=== PATIENT | male | born 1990 | race Caucasian/White ===

== ENCOUNTER 2017-03-29 16:56 | Emergency (ER) | payer OTHER, SELFPAY ==
[2017-03-29 19:52] VITALS: BP 135/92; PULSE 74; RESP 20; TEMP 37; O2SAT 96; BMI 22.3
--- NOTE | 2017-03-29 19:54 | XR_ITS ---
XR foot RT min 3V COMPARISON: Right foot 12/16/2010 HISTORY: Puncture wound after stepping on a nail TECHNIQUE: AP lateral and oblique views FINDINGS: The tarsal bones metatarsals and phalanges appear intact with no evidence of recent or old fracture. The soft tissues are normal. The plantar arch is normal. There are no definite foreign bodies and there is no air within the soft tissues. IMPRESSION: Negative right foot
--- NOTE | 2017-03-29 19:57 | HMH.EDUTC ---
[facility] [place] Clinical Impression: Cellulitis of right foot Puncture wound of foot, right Qualifiers: Encounter type: initial encounter Qualified Code(s): S91.331A - Puncture wound without foreign body, right foot, initial encounter Disposition: Home, Self-Care Condition on Discharge: Good Instructions: DI for Puncture Wound, DI for Cellulitis -- Child Additional Instructions: * Start antibiotic(s) tomorrow since you had injection tonight and no pharmacy is open and be sure to take as ordered for the FULL length of time although you should start to see improvement over the next 24-48 hours. * Elevate * Monitor closely. Outlined redness so that you can monitor easier. FU immediately for new or worsening symptoms ( including but not limited to redness, swelling, red streaking, fever, chills). * wash with warm soap and water, keep open to air if at home with foot elevated * You had a tetanus vaccine while in clinic * tylenol and motrin as needed. Do NOT take anyones narcotics as this can get both you and them in trouble. You can also overdose on medications that way and/or take something that is not appropriate for you. * You need a 24 hour wound check since tomorrow is friday. If you can not get into your primary care then return here. Prescriptions: cephALEXin [Keflex 500mg Cap] 500 mg PO Q6H #40 cap Referrals: Kar Trotter [Primary Care Provider] - (Follow up in 24 hours. If you can't see him, return here.) Forms: Work/School Release Time of Disposition: 21:09 Medical Decision Making Vital Signs: 03/29/17 19:52 03/29/17 21:11 Temperature 98.6 F 97 F L Temperature Source Temporal Artery Scan Pulse Rate 67 Pulse Rate [Right Radial] 74 Respiratory Rate 20 18 Blood Pressure 127/78 Blood Pressure [Right Arm] 135/92 Blood Pressure Mean [Right Arm] 106 Blood Pressure Source [Right Arm] Automatic Cuff Blood Pressure Position [Right Arm] Sitting 02 Sat by Pulse Oximetry 96 Oxygen Delivery Method Room Air Orders (Tests/Meds): ED MEDICATIONS Discontinued Medications Generic Name Dose Route Start Last Admin Trade Name Freq PRN Reason Stop Dose Admin Ceftriaxone Sodium 1 gm 03/29/17 21:03 Rocephin 1gm Vial IM 03/29/17 21:04 ONCE ONE Ketorolac Tromethamine 60 mg 03/29/17 21:03 Toradol 60mg/2ml Vial IM 03/29/17 21:04 ONCE ONE Lidocaine HCl 0 ml 03/29/17 21:03 Lidocaine 1% 10ml Mdv IM 03/29/17 21:04 ONCE ONE Tetanus/Reduced Diphtheria/Acell Pertussis 0.5 ml 03/29/17 20:20 03/29/17 20:23 Adacel Tdap 0.5ml Syringe IM 03/29/17 20:21 0.5 ml .ONCE ONE Administration - Radiology Data #1 Image(s): Foot/Toes Image Reviewed: Yes I reviewed the patient's radiology image w/the ED provider Rvwd with Dr. Ramirez ER , no acute findings - Physician Consults Physician Consulted: Dr. Ramirez ER Time: 20:45 Reason -: Pt condition Comment/Response: Discussed HPI, exam, xray. Discharge with antibiotics and follow up. - Stevie Inquiry Pt receiving controlled substance: No [facility] [place] - General Stated complaint: AO [id number] STEPPED ON NAIL R FOOT Time Seen by Provider: 03/29/17 19:57 Mode of Arrival: Family Vehicle Source of Information: Patient Limitations: No Limitations Description of Symptoms (Recalled from Triage Doc. by RN): PT STATES THAT HE STEPPED ON A SHADE NAIL YESTERDAY. PT RIGHT FOOT IS SWOLLEN AND TENDER. PT SAYS ITS HARD TO MOVE HIS 2ND - 5TH TOES. HEENT Symptoms (Recalled from RN notes): No Resp Symptoms (Recalled from RN notes): No Skin Symptoms (Recalled from RN notes): Yes (RIGHT FOOT NAIL PUNCTURE) MS Symptoms (Recalled from RN notes): No Functional Status (Recalled from RN notes): NA - History of Present Illness Provider Complaint: c/o puncture wound to bottom of right foot. Was working on tearing out guts of a house. Stepped on rusted nail in a board yesterday. Went through sneaker and then on into foot. no immedia
--- NOTE | 2017-03-29 20:06 | ED_ITS ---
[facility] [place]ression: Cellulitis of right foot Puncture wound of foot, right Qualifiers: Encounter type: initial encounter Qualified Code(s): S91.331A - Puncture wound without foreign body, right foot, initial encounter Disposition: Home, Self-Care Condition on Discharge: Good Instructions: DI for Puncture Wound, DI for Cellulitis -- Child Additional Instructions: * Start antibiotic(s) tomorrow since you had injection tonight and no pharmacy is open and be sure to take as ordered for the FULL length of time although you should start to see improvement over the next 24-48 hours. * Elevate * Monitor closely. Outlined redness so that you can monitor easier. FU immediately for new or worsening symptoms ( including but not limited to redness , swelling, red streaking, fever, chills). * wash with warm soap and water, keep open to air if at home with foot elevated * You had a tetanus vaccine while in clinic * tylenol and motrin as needed. Do NOT take anyones narcotics as this can get both you and them in trouble. You can also overdose on medications that way and/ or take something that is not appropriate for you. * You need a 24 hour wound check since tomorrow is friday. If you can not get into your primary care then return here. Prescriptions: cephALEXin [Keflex 500mg Cap] 500 mg PO Q6H #40 cap Referrals: Kar Trotter [Primary Care Provider] - (Follow up in 24 hours. If you can't see him, return here.) Forms: Work/School Release Time of Disposition: 21:09 Medical Decision Making Vital Signs: 03/29/17 19:52 03/29/17 21:11 Temperature 98.6 F 97 F L Temperature Source Temporal Artery Scan Pulse Rate 67 Pulse Rate [Right Radial] 74 Respiratory Rate 20 18 Blood Pressure 127/78 Blood Pressure [Right Arm] 135/92 Blood Pressure Mean [Right Arm] 106 Blood Pressure Source [Right Arm] Automatic Cuff Blood Pressure Position [Right Arm] Sitting 02 Sat by Pulse Oximetry 96 Oxygen Delivery Method Room Air Orders (Tests/Meds): ED MEDICATIONS Discontinued Medications Generic Name Dose Route Start Last Admin Trade Name Freq PRN Reason Stop Dose Admin Ceftriaxone Sodium 1 gm 03/29/17 21:03 Rocephin 1gm Vial IM 03/29/17 21:04 ONCE ONE Ketorolac Tromethamine 60 mg 03/29/17 21:03 Toradol 60mg/2ml Vial IM 03/29/17 21:04 ONCE ONE Lidocaine HCl 0 ml 03/29/17 21:03 Lidocaine 1% 10ml Mdv IM 03/29/17 21:04 ONCE ONE Tetanus/Reduced Diphtheria/Acell Pertussis 0.5 ml 03/29/17 20:20 03/29/17 20: 23 Adacel Tdap 0.5ml Syringe IM 03/29/17 20:21 0.5 ml .ONCE ONE Administration - Radiology Data #1 Image(s): Foot/Toes Image Reviewed: Yes I reviewed the patient's radiology image w/the ED provider Rvwd with Dr. Ramirez, ER MD, no acute findings - Physician Consults Physician Consulted: Dr. Ramirez, ER MD Time: 20:45 Reason -: Pt condition Comment/Response: Discussed HPI, exam, xray. Discharge with antibiotics and follow up. - Stevie Inquiry Pt receiving controlled substance: No [facility] [place] - General Stated complaint: AO [id number] STEPPED ON NAIL R FOOT Time Seen by Provider: 03/29/17 19:57 Mode of Arrival: Family Vehicle Source of Information: Patient Limitations: No Limitations Description of Symptoms (Recall
[2017-03-29 21:11] VITALS: BP 127/78; PULSE 67; RESP 18; TEMP 36.1
== END 2017-03-29 21:12 | disposition home or self-care (01) ==
PROVIDERS: Emergency Provider Nurse Practitioner Family; Family Provider Family Medicine; PCP Family Medicine
DX: S91.331A Puncture wound without foreign body, right foot, initial encounter (principal); L03.115 Cellulitis of right lower limb
CPT/HCPCS: 73630; 90471; 90715; 99201; 99202

== ENCOUNTER 2017-06-01 06:40 | Emergency (ER) | payer OTHER, SELFPAY ==
[2017-06-01 06:46] VITALS: BP 148/99; PULSE 121; RESP 18; TEMP 37.3; O2SAT 98; BMI 21.9
--- NOTE | 2017-06-01 07:13 | HMH.EDGENADL ---
ED Disposition Clinical Impression: Pain due to dental caries, Gingivitis Disposition: Home, Self-Care Condition on Discharge: Good Instructions: DI for Dental Pain Additional Instructions: see dentist for follow up Prescriptions: Minocycline HCl 100 mg PO BID #20 tab Referrals: Kar Trotter [Primary Care Provider] - - Critical Care Critical Care Time: No Attestation: On 06/01/17, the high probability of a clinically significant, sudden or life threatening deterioration of the following system(s) required my full and direct attention, intervention and personal management. The time I documented below is in addition to time spent performing reported procedures but includes the following listed in this critical care notation. Medical Decision Making - Medical Records Medical records reviewed: Yes: I reviewed the patient's medical records. - Stevie Inquiry Pt receiving controlled substance: No Vital Signs: 06/01/17 06:46 Temperature 99.2 F Temperature Source Oral Pulse Rate [Right Brachial] 121 H Respiratory Rate 18 Blood Pressure [Right Arm] 148/99 Blood Pressure Mean [Right Arm] 115 Blood Pressure Source [Right Arm] Automatic Cuff Blood Pressure Position [Right Arm] Sitting 02 Sat by Pulse Oximetry 98 Oxygen Delivery Method Room Air Orders (Tests/Meds): ED MEDICATIONS Discontinued Medications Generic Name Dose Route Start Last Admin Trade Name Freq PRN Reason Stop Dose Admin Ibuprofen 600 mg 06/01/17 06:51 06/01/17 06:57 Motrin 600mg Tablet PO 06/01/17 06:52 600 mg ONCE ONE Administration Lidocaine HCl 15 ml 06/01/17 06:51 06/01/17 06:57 Lidocaine 2% Viscous Solution 15ml Udc PO 06/01/17 06:52 15 ml ONCE ONE Administration General Adult HPI - General Chief complaint: PAIN Stated complaint: Dental Pain Time Seen by Provider: 06/01/17 07:13 Mode of Arrival: Ambulatory Source of Information: Patient, Medical Record Limitations: No Limitations Description of Symptoms (Recalled from ER Triage Doc. by RN): left side dental pain; tooth broke - History of Present Illness HPI narrative: pt with acute dental pain Onset (ago): day(s) Location: mouth Severity: moderate Treatments prior to arrival: NSAID - Related Data Home Medications Medication Instructions Recorded Confirmed cephALEXin [Keflex 500mg Cap] 500 mg PO Q6H 06/01/17 06/01/17 Previous Rx's Medication Instructions Recorded Minocycline HCl 100 mg PO BID #20 tab 06/01/17 Allergies Allergy/AdvReac Type Severity Reaction Status Date / Time No Known Allergies Allergy Verified 03/29/17 17:19 [facility] History I have reviewed the patient's past medical history: Yes Other Medical History: Reports: Arthritis, Other (chronic back and joint pain) Other Surgeries: Yes: Other (dental extractions) - Social History Educational Level: Completed High School Smoking Status: Current every day smoker Tobacco Type: cigarettes Alcohol Intake: never - Psychiatric History Expresses thoughts of harming self/others: None Suicide Plan Description: No Plan ROS Obtained: Yes All systems reviewed & no additional complaints - Constitutional Constitutional: Denies fever(s) - Eyes Eyes: Denies change in vision - ENT Ears, Nose, Mouth, and Throat: Reports dental pain, Denies sore throat - Cardiovascular Cardiovascular: Denies chest pain at rest - Respiratory Respiratory: No cough - Gastrointestinal Gastrointestingal: Denies: abdominal pain - Integumentary/Breasts Skin/Breast: Denies rash - Neurologic Neurologic: Denies seizure-like activity Physical Exam - General General appearance: in no apparent distress - Head Head exam: normocephalic - Eye Eye exam: Present: PERRL, EOMI - Expanded ENT Exam Teeth exam: Present: dental caries, gingival swelling - Neck Neck exam: Present: trachea midline - Respiratory Respiratory exam: Absent: respiratory distress
--- NOTE | 2017-06-01 07:18 | ED_ITS ---
ED Disposition Clinical Impression: Pain due to dental caries, Gingivitis Disposition: Home, Self-Care Condition on Discharge: Good Instructions: DI for Dental Pain Additional Instructions: see dentist for follow up Prescriptions: Minocycline HCl 100 mg PO BID #20 tab Referrals: Kar Trotter [Primary Care Provider] - - Critical Care Critical Care Time: No Attestation: On 06/01/17, the high probability of a clinically significant, sudden or life threatening deterioration of the following system(s) required my full and direct attention, intervention and personal management. The time I documented below is in addition to time spent performing reported procedures but includes the following listed in this critical care notation. Medical Decision Making - Medical Records Medical records reviewed: Yes: I reviewed the patient's medical records. - Stevie Inquiry Pt receiving controlled substance: No Vital Signs: 06/01/17 06:46 Temperature 99.2 F Temperature Source Oral Pulse Rate [Right Brachial] 121 H Respiratory Rate 18 Blood Pressure [Right Arm] 148/99 Blood Pressure Mean [Right Arm] 115 Blood Pressure Source [Right Arm] Automatic Cuff Blood Pressure Position [Right Arm] Sitting 02 Sat by Pulse Oximetry 98 Oxygen Delivery Method Room Air Orders (Tests/Meds): ED MEDICATIONS Discontinued Medications Generic Name Dose Route Start Last Admin Trade Name Freq PRN Reason Stop Dose Admin Ibuprofen 600 mg 06/01/17 06:51 06/01/17 06:57 Motrin 600mg Tablet PO 06/01/17 06:52 600 mg ONCE ONE Administration Lidocaine HCl 15 ml 06/01/17 06:51 06/01/17 06:57 Lidocaine 2% Viscous Solution 15ml Udc PO 06/01/17 06:52 15 ml ONCE ONE Administration General Adult HPI - General Chief complaint: PAIN Stated complaint: Dental Pain Time Seen by Provider: 06/01/17 07:13 Mode of Arrival: Ambulatory Source of Information: Patient, Medical Record Limitations: No Limitations Description of Symptoms (Recalled from ER Triage Doc. by RN): left side dental pain; tooth broke - History of Present Illness HPI narrative: pt with acute dental pain Onset (ago): day(s) Location: mouth Severity: moderate Treatments prior to arrival: NSAID - Related Data Home Medications Medication Instructions Recorded Confirmed cephALEXin [Keflex 500mg Cap] 500 mg PO Q6H 06/01/17 06/01/17 Previous Rx's Medication Instructions Recorded Minocycline HCl 100 mg PO BID #20 tab 06/01/17 Allergies Allergy/AdvReac Type Severity Reaction Status Date / Time No Known Allergies Allergy Verified 03/29/17 17:19 [facility] History I have reviewed the patient's past medical history: Yes Other Medical History: Reports: Arthritis, Other (chronic back and joint pain) Other Surgeries: Yes: Other (dental extractions) - Social History Educational Level: Completed High School Smoking Status: Current every day smoker Tobacco Type: cigarettes Alcohol Intake: never - Psychiatric History Expresses thoughts of harming self/others: None Suicide Plan Description: No Plan ROS Obtained: Yes All systems reviewed & no additional complaints - Constitutional Constitutional: Mariah
[2017-06-01 07:27] VITALS: BP 144/75; PULSE 89; RESP 18; TEMP 37.3; O2SAT 98
== END 2017-06-01 07:27 | disposition home or self-care (01) ==
PROVIDERS: Emergency Provider Emergency Medicine; Family Provider Family Medicine; PCP Family Medicine
DX: K05.10 Chronic gingivitis, plaque induced (principal); K02.9 Dental caries, unspecified
CPT/HCPCS: 99281